=== PATIENT | female | born 1985 | race American Indian/Alaskan Native ===

== ENCOUNTER 2019-02-03 23:23 | Inpatient (IN) | payer MEDICAID ==
[2019-02-04] MEDS ORDERED: BETAMET ACET/BETAMET NA PH 6 MG/ML INJ 5 ML MDV IM ONE (00:17)
[2019-02-04] MEDS ORDERED: TERBUTALINE 1 MG/1 ML INJ IVP ONE (00:22)
[2019-02-04] MEDS ORDERED: LACTATED RINGERS 1,000 ML ONE ×2 (01:23→03:58)
[2019-02-04] MEDS ORDERED: FAMOTIDINE 20 MG/2 ML INJ IV ONE (01:38)
[2019-02-04] MEDS ORDERED: BICITRA ORAL LIQD 30ML PO ONE (01:38)
[2019-02-04] MEDS ORDERED: METOCLOPRAMIDE 10 MG/2 ML INJ IV ONE (01:38)
[2019-02-04 01:54] LABS: Basophils % (Auto) 0.2 % (0.0-1.8); Eosinophils % (Auto) 0.5 % (0.0-4.3); Hematocrit 30.6 % (30.3-42.9); Hemoglobin 9.7 gm/dl (10.1-14.3); Lymphocytes # (Auto) 1.5 K/mm3 (1.2-5.4); Lymphocytes % (Auto) 21.9 % (13.4-35.0); Mean Corpuscular HGB Conc 32 % (30-34); Monocytes # (Auto) 0.8 K/mm3 (0.0-0.8); Monocytes % (Auto) 11.6 % (0.0-7.3); Platelet Count 217 K/mm3 (140-440); Red Blood Count 4.52 M/mm3 (3.65-5.03)
[2019-02-04] MEDS ORDERED: LACTATED RINGERS 1,000 ML IV SCH (02:00)
[2019-02-04] MEDS ORDERED: ceFAZolin/Water 2 GM/20 ML 2 GM/20 ML SYRINGE IV NR (02:00)
[2019-02-04] MEDS ORDERED: OXYTOCIN 20 UNIT/1000ML DRIP 20 UNITS/1,000 ML BAG IV SCH ×2 (02:00→06:00)
[2019-02-04 02:02] LABS: Mean Corpuscular Volume 68 fl (79-97)
--- NOTE | 2019-02-04 02:47 | Anesthesia Consultation ---
Anesthesia Consult and Med Hx Date of service: 02/04/19 - Airway Anesthetic Teeth Evaluation: Good ROM Head & Neck: Adequate Mental/Hyoid Distance: Adequate Mallampati Class: Class II Intubation Access Assessment: Probably Good - Pulmonary Exam CTA: Yes - Cardiac Exam Cardiac Exam: RRR - Pre-Operative Health Status ASA Pre-Surgery Classification: ASA2 Proposed Anesthetic Plan: Spinal - Pulmonary Hx Asthma: No - Cardiovascular System Hx Hypertension: No - Central Nervous System Hx Seizures: No - Hematic Hx Anemia: Yes
--- NOTE | 2019-02-04 02:48 | Anesthesia Day of Surgery ---
Anesthesia Day of Surgery - Day of Surgery Patient Examined: Yes Patient H&P Reviewed: Yes Patient is NPO: Yes
[2019-02-04] MEDS ORDERED: AMPICILLIN/NS 2 GM/100 ML 2 GM/100 ML BAG IV ONE (03:10)
--- NOTE | 2019-02-04 03:29 | History and Physical Report ---
History of Present Illness Date of examination: 02/04/19 Date of admission: 02/03/19 23:23 Chief complaint: leaking and contractions History of present illness: This is a 33 yo EDC 03/07/19 here for leaking at 11p. She states that fluid leaking and noted to be grossly ruptured. She is a patient of [place] started care at 12 weeks. SHe is AMA,, previous csec x3, abnormal 1hr normal 3hr GTT and placental lakes. Past History Past Medical History: no pertinent history Past Surgical History: section (x3) Family/Genetic History: none Social history: single. denies: smoking, alcohol abuse, prescription drug abuse - Obstetrical History Expected Date of Delivery: 03/07/19 Actual Gestation: 35 Week(s) 4 Day(s) : 6 Para: 3 Hx # Term Pregnancies: 3 Number of Pregnancies: 0 Spontaneous Abortions: 1 Induced : 1 Number of Living Children: 3 Medications and Allergies Allergies Allergy/AdvReac Type Severity Reaction Status Date / Time No Known Allergies Allergy Verified 02/04/19 00:21 Active Meds: Active Medications Oxytocin/Sodium Chloride (Pitocin/Ns 20 Unit/1000ml Drip) 20 units in 1,000 mls @ 0 mls/hr IV TITR DANO Lactated Ringer's (Lactated Ringers) 1,000 mls @ 2,250 mls/hr IV PREOP DANO Stop: 02/05/19 02:27 Last Admin: 02/04/19 02:38 Dose: 2,250 mls/hr Documented by: Ampicillin Sodium (Ampicillin/Ns 2 Gm/100 Ml) 2 gm in 100 mls @ 100 mls/hr IV ONCE ONE; Protocol Stop: 02/04/19 04:09 Review of Systems All systems: negative - Vital Signs Vital signs: Vital Signs Pulse BP 91 H 135/83 02/03/19 23:47 02/03/19 23:47 Temp Pulse Resp BP Pulse Ox 97.9 F 96 H 20 129/71 02/03/19 23:48 02/04/19 01:03 02/03/19 23:48 02/04/19 01:03 - Physical Exam Breasts: Positive: normal Cardiovascular: Regular rate, Normal S1 Lungs: Positive: Clear to auscultation, Normal air movement Abdomen: Positive: normal appearance, soft, normal bowel sounds. Negative: distention, tenderness, guarding Genitourinary (Female): Positive: normal external genitalia, normal perenium - Obstetrical FHR: category 1 Cervical Dilatation: 0 Results Result Diagrams: 02/04/19 01:15 Abnormal lab results 02/04/19 Range/Units 01:15 Hgb 9.7 L (10.1-14.3) gm/dl MCV 68 L (79-97) fl MCH 21 L (28-32) pg RDW 17.0 H (13.2-15.2) % K[place]t % (Auto) 11.6 H (0.0-7.3) % All other labs normal. Assessment and Plan A/P IUP 35+4 weeks previous csec x3 PPROM uterine contractions IVF, labs discussed r/b/a of csec which include bleeding infection, damage to pelvic and non pelvic organs, risk of anesthesia, risk of blood clots, risk of pain and chronic pelvic pain and risk of hysterectomy and Patient voiced acknowlegment and signed consents Will proceed with repeat csec x3
--- NOTE | 2019-02-04 03:39 | Ultrasound Report ---
ULTRASOUND OBSTETRIC INDICATION: Evaluate well-being. Clinical Gestational Age (GA): 35 weeks, 4 days TECHNIQUE: Transabdominal. COMPARISON: OB ultrasound from 09/23/2018. FINDINGS: There is a single intrauterine . Biparietal Diameter = 8.7 cm = 34 weeks, 6 day(s). Head Circumference = 31.4 cm = 35 weeks, 1 day(s). Abdominal Circumference = 31.5 cm = 35 weeks, 3 day(s). Femur Length = 7.0 cm = 36 weeks, 0 day(s). Average Ultrasound Age (AUA) = 35 weeks, 3 day(s). Heart Rate: 130 beats per minute. Estimated Weight in grams (if calculated): 2683 Position: cephalic. Cervix: closed. Length in cm (if measured): 3.4 Placenta: Fundal/left lateral. and free of the os. Amniotic Fluid Volume: normal Amniotic Fluid Index (HANK) in cm (if calculated): 8.0. Maternal Adnexa: No significant abnormality. IMPRESSION: 1. Single, living intrauterine with estimated sonographic age of 35 weeks, 3 day(s). 2. No significant sonographic abnormality. Signer Name: Juan Carlos Wilkerson MD Signed: 02/04/2019 3:34 AM Workstation Name: [id number]
[2019-02-04] MEDS ORDERED: KETOROLAC 30 MG/1 ML INJ ONE (03:58)
[2019-02-04] MEDS ORDERED: DEXMEDETOMIDINE 200 MCG/2 ML VIAL IV ONE (03:58)
[2019-02-04] MEDS ORDERED: BUPIVACAINE/PF (0.5%) 5 MG/1 ML 30 ML VIAL INFILTRATI ONE (03:58)
[2019-02-04] MEDS ORDERED: OXYTOCIN 10 UNIT/1 ML INJ ONE (03:58)
[2019-02-04] MEDS ORDERED: ONDANSETRON 4 MG/2 ML INJ ONE (03:58)
[2019-02-04] MEDS ORDERED: WATER FOR IRRIG STERILE 1,500 ML BOTTLE IR ONE (04:00)
[2019-02-04] MEDS ORDERED: SODIUM CHLORIDE 0.9% IRR 1,500 ML BOTTLE IR ONE (04:00)
[2019-02-04] MEDS ORDERED: HYDROcodone/ACETAMINOPHEN 5-325 MG TAB PO PRN (05:32)
[2019-02-04] MEDS ORDERED: MORPHINE 2 MG/1 ML INJ IV PRN (05:32)
[2019-02-04] MEDS ORDERED: ACETAMINOPHEN 325 MG TAB PO PRN (05:32)
[2019-02-04] MEDS ORDERED: WITCH HAZEL/ GLYCERIN PAD TP PRN (05:32)
[2019-02-04] MEDS ORDERED: PROMETHAZINE 25 MG RECT SUPP PR PRN (05:32)
[2019-02-04] MEDS ORDERED: NALOXONE 0.4 MG/1 ML INJ IV PRN (05:32)
[2019-02-04] MEDS ORDERED: MAGNESIUM HYDROXIDE (MOM) ORAL LIQD UDC PO PRN (05:32)
[2019-02-04] MEDS ORDERED: HYDROCORTISONE 25 MG RECTAL SUPP PR PRN (05:32)
[2019-02-04] MEDS ORDERED: LANOLIN/ZINC/DIMETHICONE (LANSINOH) 7 GM TP PRN (05:32)
[2019-02-04] MEDS ORDERED: SENNOSIDES 8.6 MG TAB PO PRN (05:32)
[2019-02-04] MEDS ORDERED: SIMETHICONE 80 MG CHEW TAB PO PRN (05:32)
[2019-02-04] MEDS ORDERED: ONDANSETRON 4 MG/2 ML INJ IV PRN (05:32)
--- NOTE | 2019-02-04 05:37 | Procedure Note ---
OB Delivery Note - Delivery Date of Delivery: 02/04/19 Surgeon: MIKE CELESTE Estimated blood loss: 500cc - Section Preop diagnosis: repeat Postop diagnosis: same section procedure: section Disposition: PACU Complications: bladder injury Narrative: see op note - Infant A at 1 minute: 8 at 5 minutes: 8 Gender: Female (5 pounds 10 oz)
--- NOTE | 2019-02-04 05:38 | Operative Report ---
Operative Report Operative Report: DATE OF OPERATION: 02/04/19 PREOPERATIVE DIAGNOSES: 1. Prior section x3 2. PPROM 3.PTL POSTOPERATIVE DIAGNOSES: 1. Prior section. x3 2. PPROM 3. PTL 4. Adhesive disease OPERATION PERFORMED: Repeat low transverse x4, Bladder repair, Lysis of adhesions SURGEON: Kizzy Valenzuela MD EQUIPMENT VALIDATION ENGINEER:Abebe Valenzuela MD ANESTHESIA: Spinal. ESTIMATED BLOOD LOSS: 500 mL. FINDINGS: A viable female weighing 5 pounds 10oz Apgars 8 and 8 COMPLICATIONS: incidental cystotomy DISPOSITION: Stable. DESCRIPTION OF OPERATION: After informed consent was obtained, the patient was brought back to the operative suite where adequate spinal anesthesia was obtained. The patient was then placed in the dorsal supine position and prepped and draped in the sterile fashion. A repeat Pfannenstiel skin incision was made with a blade and carried down through the subcutaneous tissues to the fascia, which was extended in the transverse fascia with Avitia scissors. The fascial incision was then dissected off the rectus muscles both bluntly and sharply. Rectus muscles were not visualized. Peritoneum unidentified.. Superior area entered and noted to have bladder magallon observed.We spent 10 min dissecting and releasing adhesions to be able to enter fundally on the uterus . A low transverse uterine incision was made with the blade and carried down through the layers of the uterus until membranes bulged through the incision. The uterine incision was then extended digitally. Hand was placed inside the pelvis, and the head was brought up out of the pelvis and delivered atraumatically with gentle fundal pressure. Prior to the head being delivered. After the head was delivered, the mouth and nares were aggressively bulb suctioned. Remainder of the infant was delivered, and the was passed to the awaiting nursing staff for additional care. Cord was doubly clamped and cut and cord blood was obtained. The placenta was then manually extracted, and the uterus was not able to be exteriozed for the dense scar tissue. The uterus was cleaned of remaining clot. The uterine incision was readily identified and closed in two layers, first one with running locking followed by second imbricating layer of 0 Vicryl. The vesicouterine fascia was then reapproximated with 2-0 Vicryl. The adnexa were void on the left and palpation and visualization of left adnexa was not able secondary to dense vast adhesions. Copious irrigation and inspection of the incision was satisfactory. At this time focus on the doom of bladder and cystotomy which was irrigated and cleaned and repaired in two layers. We used 2-0 vicryl for repair with water tight seal with usage of sterile milk no milk noted. The peritoneum, rectus musle was then closed with 3-0 Vicryl in a running fashion. The fascia was closed with 1-0 PDS from one angle to the next. Subcutaneous tissues were copiously irrigated, and final bleeders were cauterized. The incision was then reapproximated with surgical tru in a standard fashion.
--- NOTE | 2019-02-04 05:56 | Post Anesthesia Evaluation ---
- Post Anesthesia Evaluation Patient Participated: Yes Airway Patent: Yes Stable Respiratory Function: Yes Nausea/Vomiting: No Temp > 96.8F: Yes Pain Manageable: Yes Adequeate Hydration: Yes Anesthesia Complications: No Block Receding Appropriately: Yes Patient on Ventilator: No
[2019-02-04] MEDS ORDERED: D5W/LACTATED RINGERS 1,000 ML IV SCH (06:00)
[2019-02-04] MEDS: KETOROLAC 30 MG/1 ML INJ IV PRN ×2 (09:47→18:47)
[2019-02-04] MEDS: MORPHINE 4 MG/1 ML INJ IV PRN ×2 (12:32→20:46)
[2019-02-04] MEDS: PRENATAL VIT27-FE FUMARATE-FOLIC ACID VIT TAB PO SCH (13:38)
[2019-02-04] MEDS: FERROUS SULFATE 325 MG TAB PO SCH (13:38)
[2019-02-04 17:37] LABS: Hematocrit 28.4 % (30.3-42.9); Hemoglobin 8.6 gm/dl (10.1-14.3)
[2019-02-05] MEDS: KETOROLAC 30 MG/1 ML INJ IV PRN (02:03)
[2019-02-05] MEDS: MORPHINE 4 MG/1 ML INJ IV PRN (04:26)
[2019-02-05] MEDS ORDERED: MEASLES, MUMPS & RUBELLA 12,500 UNIT/0.5 ML VACCINE SUB-Q ONE (05:33)
[2019-02-05] MEDS ORDERED: TETANUS,DIPH,PERTUSS(ACELL) VACCINE 0.5 ML SYRINGE IM ONE (06:00)
[2019-02-05] MEDS: cefTRIAXone/NS 2 GM/100 ML 2 GM/100 ML BAG IV SCH (09:50)
[2019-02-05] MEDS: IBUPROFEN 800 MG TAB PO PRN (09:50)
[2019-02-05] MEDS: PRENATAL VIT27-FE FUMARATE-FOLIC ACID VIT TAB PO SCH (09:51)
--- NOTE | 2019-02-05 13:45 | Progress Note ---
Assessment and Plan A/P POD1 s/p Repeat csec bladder repair urine sufficient and yellow consult again for Urology for f/u of repair currently on macrobid hgb 10-8 on iron routine care Subjective - Subjective Date of service: 02/05/19 Principal diagnosis: s/p reepeat csec x3/bladder repair Interval history: This is a 33 yo EDC 03/07/19 here for leaking at 11p. She states that fluid leaking and noted to be grossly ruptured. She is a patient of [facility] care at 12 weeks. SHe is AMA,, previous csec x3, abnormal 1hr normal 3hr GTT and placental lakes. Patient reports: appetite normal, voiding normally, pain well controlled, flatus, ambulating normally [place]: doing well, in NICU Objective - Vital Signs Latest vital signs: Vital Signs Temp Pulse Resp BP BP Pulse Ox 02/05/19 08:50 97.9 F 58 L 20 99/66 02/04/19 23:30 98.4 F 69 16 112/67 02/04/19 19:30 98.7 F 77 18 109/71 02/04/19 16:27 98.2 F 53 L 18 101/73 100 Intake and Output 02/04/19 02/05/19 02/05/19 23:59 07:59 15:59 Intake Total 360 Output Total 500 Balance -500 360 Intake: Oral 360 Output: Urine 500 Indwelling Catheter 500 Other: Total, Intake Amount 240 Total, Output Amount 400 # Voids Indwelling Catheter 200 Void 0 - Exam Breasts: Present: normal Cardiovascular: Present: Regular rate, Normal S1 Lungs: Present: Clear to auscultation, Normal air movement Abdomen: Present: normal appearance, soft, normal bowel sounds. Absent: distention, tenderness, guarding Uterus: Present: normal, firm, fundal height below umbilicus. Absent: bogginess, tenderness Extremities: Present: normal Deep Tendon Reflex Grade: Normal +2 Incision: Present: normal, intact - Labs Labs: Abnormal lab results 02/04/19 Range/Units 16:37 Hgb 8.6 L (10.1-14.3) gm/dl Hct 28.4 L (30.3-42.9) %
--- NOTE | 2019-02-05 14:20 | Consultation ---
History of Present Illness - Reason for Consult Consult date: 02/05/19 - History of Present Illness s is a 33 yo EDC 03/07/19 here for leaking at 11p. She states that fluid leaking and noted to be grossly ruptured. She is a patient of [place] started care at 12 weeks. SHe is previous [facility] x3. C section with bladder injury---repaired with magallon Male family at bedside. No previous gu history. abd--clean dressing magallon--clear urine A/P Recent C section with Bladder injury & repair home with magallon big bag & leg bag my office will set up outpt cystogram (7-10 days) and office appt Past History Social history: single. denies: smoking, alcohol abuse, prescription drug abuse Medications and Allergies Allergies Allergy/AdvReac Type Severity Reaction Status Date / Time No Known Allergies Allergy Verified 02/04/19 00:21 Home Medications Medication Instructions Recorded Confirmed Last Taken Type oxyCODONE /ACETAMINOPHEN [Percocet 1 tab PO Q6HR PRN #40 tablet 02/05/19 Unknown Rx 5/325] Active Meds: Active Medications Acetaminophen (Tylenol) 650 mg PO Q4H PRN PRN Reason: Fever >100.5/SHAH Acetaminophen/Hydrocodone Bitart ([place] 5/325) 1 each PO Q6H PRN PRN Reason: Pain, Moderate (4-6) Ferrous Sulfate (Feosol) 325 mg PO QDAY [facility] Last Admin: 02/04/19 13:38 Dose: Not Given Documented by: Hydrocortisone Acetate (Anucort-Hc) 25 mg VT BID PRN PRN Reason: Hemorrhoids Oxytocin/Sodium Chloride (Pitocin/Ns 20 Unit/1000ml Drip) 20 units in 1,000 mls @ 0 mls/hr IV TITR [facility] Last Admin: 02/04/19 06:57 Dose: 125 mls/hr Documented by: Oxytocin/Sodium Chloride (Pitocin/Ns 20 Unit/1000ml Drip) 20 units in 1,000 mls @ 250 mls/hr IV DIRECT DANO Dextrose/Lactated Ringer's (D5lr) 1,000 mls @ 125 mls/hr IV DIRECT DANO Ceftriaxone Sodium (Rocephin/Ns 2 Gm/100 Ml) 2 gm in 100 mls @ 200 mls/hr IV Q24HR [facility]; Protocol Last Admin: 02/05/19 09:50 Dose: 200 mls/hr Documented by: Ibuprofen (Ibuprofen) 800 mg PO Q6H PRN PRN Reason: Pain, Mild (1-3) Last Admin: 02/05/19 09:50 Dose: 800 mg Documented by: Ketorolac Tromethamine (Toradol) 30 mg IV Q6H PRN PRN Reason: Pain, Moderate (4-6) Stop: 02/09/19 05:31 Last Admin: 02/05/19 02:03 Dose: 30 mg Documented by: Magnesium Hydroxide (Milk Of Magnesia) 30 ml PO QHS PRN PRN Reason: Constip Unrelieved By Senna Last Admin: 02/04/19 12:31 Dose: 30 ml Documented by: Morphine Sulfate (Morphine) 2 mg IV Q4H PRN PRN Reason: Pain, Moderate (4-6) Morphine Sulfate (Morphine) 4 mg IV Q4H PRN PRN Reason: Pain , Severe (7-10) Last Admin: 02/05/19 04:26 Dose: 4 mg Documented by: Multi-Ingredient Ointment (Lansinoh) 1 applic TP PRN PRN PRN Reason: dryness/cracking Multivitamins/Iron/Calcium ( Vitamin) 1 each PO QDAY [facility] Last Admin: 02/05/19 09:51 Dose: 1 each Documented by: Naloxone HCl (Naloxone) 0.1 mg IV Q2MIN PRN PRN Reason: Res Rate </= 8 or 02 SAT < 92% Ondansetron HCl (Zofran) 4 mg IV Q8H PRN PRN Reason: Nausea And Vomiting Oxycodone/Acetaminophen (Percocet 5/325) 2 tab PO Q6H PRN PRN Reason: Pain, Moderate (4-6) Promethazine HCl (Phenergan) 25 mg VT Q6H PRN PRN Reason: N/V IF NPO AND NO IV ACCESS Senna (Senokot) 17.2 mg PO QHS PRN PRN Reason: Constipation Simethicone (Mylicon) 80 mg PO Q6H PRN PRN Reason: Gas pain Last Admin: 02/04/19 12:31 Dose: 80 mg Documented by: Sodium Chloride (Sodium Chloride Flush Syringe 10 Ml) 10 ml IV PRN PRN PRN Reason: LINE FLUSH Witch Martha/Glycerin (Tucks Pad) 1 each TP PRN PRN PRN Reason: Hemorrhoids/cleansing/soothing Exam - Constitutional Vitals: Temp Pulse Resp BP Pulse Ox 97.9 F 58 L 20 99/66 100 02/05/19 08:50 02/05/19 08:50 02/05/19 08:50 02/05/19 08:50 02/04/19 16:27 Results - Labs CBC & Chem 7: 02/04/19 16:37 Labs: Abnormal lab results 02/04/19 Range/Units 16:37 Hgb 8.6 L (10.1-14.3) gm/dl Hct 28.4 L (30.3-42.9) %
[2019-02-05] MEDS: oxyCODONE /ACETAMINOPHEN 5-325MG TAB PO PRN ×2 (15:04→20:23)
--- NOTE | 2019-02-05 17:03 | Progress Note ---
Assessment and Plan POD1 s/p repeat and cystotomy repair Acute on chronic anemia- ferrous sulfate supplementation Provide Raymundo/leg bag education Anticipate d/c to home on POD3 Subjective - Subjective Date of service: 02/05/19 Principal diagnosis: s/p repeat csec x3/bladder repair Interval history: Pt is POD1 s/p repeat LTCS and cystotomy repair Patient reports: appetite normal, pain well controlled, flatus, ambulating normally, other (Raymundo catheter in place) [place]: in NICU Objective - Vital Signs Latest vital signs: Vital Signs Temp Pulse Resp BP 02/05/19 08:50 97.9 F 58 L 20 99/66 02/04/19 23:30 98.4 F 69 16 112/67 02/04/19 19:30 98.7 F 77 18 109/71 Intake and Output 02/05/19 02/05/19 02/05/19 07:59 15:59 23:59 Intake Total 360 Output Total 500 Balance -500 360 Intake: Oral 360 Output: Urine 500 Indwelling Catheter 500 Other: Total, Intake Amount 240 Total, Output Amount 400 # Voids Void 0 - Exam Lungs: Present: Normal air movement Abdomen: Present: soft Uterus: Present: firm, fundal height below umbilicus Extremities: Present: normal Incision: Present: dressed - Labs Labs: Abnormal lab results 02/04/19 Range/Units 16:37 Hgb 8.6 L (10.1-14.3) gm/dl Hct 28.4 L (30.3-42.9) %
[2019-02-06] MEDS: oxyCODONE /ACETAMINOPHEN 5-325MG TAB PO PRN ×3 (05:23→18:00)
--- NOTE | 2019-02-06 08:20 | Progress Note ---
Assessment and Plan A/P POD2 s/p Repeat csec bladder repair urine sufficient and yellow appreciate consult from urology with f/u in 7-10 days for cystogram prior to removal currently on macrobid hgb 9.7-8 on iron routine care d/c home pod 3 Subjective - Subjective Date of service: 02/06/19 Principal diagnosis: s/p repeat csec x3/bladder repair Interval history: This is a 33 yo EDC 03/07/19 here for leaking at 11p. She states that fluid leaking and noted to be grossly ruptured. She is a patient of [facility] care at 12 weeks. SHe is AMA,, previous csec x3, abnormal 1hr normal 3hr GTT and placental lakes. Patient reports: appetite normal, voiding normally, pain well controlled, flatus, ambulating normally [place]: doing well, in NICU Objective - Vital Signs Latest vital signs: Vital Signs Temp Pulse Resp BP 02/06/19 05:23 18 02/06/19 01:25 18 02/05/19 23:30 98.7 F 67 18 114/78 02/05/19 20:23 18 02/05/19 17:00 98.6 F 66 20 105/61 02/05/19 08:50 97.9 F 58 L 20 99/66 Intake and Output 02/05/19 02/06/19 02/06/19 23:59 07:59 15:59 Intake Total 120 200 Output Total 600 Balance -480 200 Intake: Oral 120 200 Output: Urine 600 Indwelling Catheter 600 Other: Total, Intake Amount 120 200 Total, Output Amount 600 - Exam Breasts: Present: normal Cardiovascular: Present: Regular rate, Normal S1 Lungs: Present: Clear to auscultation, Normal air movement Abdomen: Present: normal appearance, soft, normal bowel sounds. Absent: distention, tenderness, guarding Vulva: both: normal Uterus: Present: normal, firm, fundal height below umbilicus. Absent: bogginess, tenderness Extremities: Present: normal Deep Tendon Reflex Grade: Normal +2 Incision: Present: normal, dry, intact
[2019-02-06] MEDS: IBUPROFEN 800 MG TAB PO PRN ×2 (08:25→23:51)
[2019-02-06] MEDS: FERROUS SULFATE 325 MG TAB PO SCH (10:08)
[2019-02-06] MEDS: PRENATAL VIT27-FE FUMARATE-FOLIC ACID VIT TAB PO SCH (10:08)
[2019-02-06] MEDS: cefTRIAXone/NS 2 GM/100 ML 2 GM/100 ML BAG IV SCH (10:08)
[2019-02-07] MEDS: oxyCODONE /ACETAMINOPHEN 5-325MG TAB PO PRN ×2 (05:15→11:30)
[2019-02-07] MEDS: PRENATAL VIT27-FE FUMARATE-FOLIC ACID VIT TAB PO SCH (09:18)
[2019-02-07] MEDS: FERROUS SULFATE 325 MG TAB PO SCH (09:18)
[2019-02-07] MEDS: cefTRIAXone/NS 2 GM/100 ML 2 GM/100 ML BAG IV SCH (09:18)
--- NOTE | 2019-02-07 10:16 | Progress Note ---
Assessment and Plan POD3 s/p repeat and bladder repair Acute on chronic anemia- ferrous sulfate supplementation VSS D/c to home today Subjective - Subjective Date of service: 02/07/19 Principal diagnosis: s/p repeat csec x3/bladder repair Interval history: Pt is POD3 s/p repeat LTCS and bladder repair Patient reports: appetite normal, voiding normally, pain well controlled, flatus, ambulating normally : doing well, nursing well (and pumping), bottle feeding Objective - Vital Signs Latest vital signs: Vital Signs Temp Pulse Resp BP BP Pulse Ox 02/07/19 07:58 98.1 F 53 L 20 119/78 98 02/06/19 23:32 97.2 F L 63 20 107/66 97 02/06/19 16:20 98.7 F 72 20 112/82 Intake and Output 02/06/19 02/07/19 02/07/19 23:59 07:59 15:59 Intake Total 780 360 Output Total 400 800 Balance 380 -440 Intake: Oral 780 360 Output: Urine 400 800 Indwelling Catheter 400 800 Void 0 Other: Total, Intake Amount 360 120 Total, Output Amount 200 400 # Voids Indwelling Catheter 1 Void 0 - Exam Lungs: Present: Normal air movement Abdomen: Present: distention Uterus: Present: firm, fundal height below umbilicus Extremities: Present: normal Incision: Present: normal, dry, intact
--- NOTE | 2019-02-07 10:20 | Discharge Summary ---
Providers - Providers Date of Admission: 02/03/19 23:23 Date of discharge: 02/07/19 Attending physician: MIKE CELESTE MD 02/05/19 13:23 Consult to Physician [CONS] Urgent Comment: Consulting Provider: MARC RIOS Physician Instructions: Reason For Exam: Incidental cytsostomy repaired at time of 3rd [facility] Primary care physician: MIKE CELESTE MD Hospitalization Reason for admission: rupture of membranes Delivery: Procedure: repeat low transverse Procedure details: Lysis of adhesions and incidental cystotomy repair Incision: normal, dry, intact Discharge diagnosis: delivery Hospital course: Pt arrived with ROM and underwent repeat x4 complicated by adhesive disease and cystotomy, repaired. She is discharged with Raymundo in place and close urology f/u. Condition at discharge: Good Disposition: DC-01 TO HOME OR SELFCARE Plan - Discharge Medications Prescriptions: Ferrous Sulfate [Ferrous Sulfate 324 MG] 324 mg PO BID #60 tablet. Ibuprofen [Motrin] 600 mg PO Q6H PRN #60 tablet PRN Reason: Pain oxyCODONE /ACETAMINOPHEN [Percocet 5/325] 1 tab PO Q6HR PRN #40 tablet PRN Reason: Pain - Provider Discharge Summary Activity: routine, no sex for 6 weeks, no heavy lifting 4 weeks, no strenuous exercise Diet: routine Instructions: routine Additional instructions: [] Smoking cessation referral if applicable(refer to patient education folder for contact #) [] Refer to [facility] Booklet Call your doctor immediately for: * Fever > 100.5 * Heavy vaginal bleeding ( >1 pad per hour) * Severe persistent headache * Shortness of breath * Reddened, hot, painful area to leg or breast * Drainage or odor from incision. * Keep incision clean and dry at all times and follow doctor's instructions regarding bathing/showering - Follow up plan Follow up: MIKE CELESTE MD [Primary Care Provider] - 7 Days (Please call [place] [facility] environmental engineer scientist to schedule appointment.)
[2019-02-07 13:11] VITALS: BP 132/85
== END 2019-02-07 13:56 | disposition home or self-care (01) | DRG 765 ==
LOC: APU 23:23 → OB 02-04 07:36
PROVIDERS: ADMIT Obstetrics & Gynecology; ATTEND Obstetrics & Gynecology
PROC: 10D00Z1 Extraction of Products of Conception, Low, Open Approach (ICD-10-PCS; principal; 2019-02-04)
PROC: 0UN90ZZ Release Uterus, Open Approach (ICD-10-PCS; 2019-02-04)
PROC: 0TQB0ZZ Repair Bladder, Open Approach (ICD-10-PCS; 2019-02-04)
PROC: 3E0234Z Introduction of Serum, Toxoid and Vaccine into Muscle, Percutaneous Approach (ICD-10-PCS; 2019-02-05)
PROC: 3E0134Z Introduction of Serum, Toxoid and Vaccine into Subcutaneous Tissue, Percutaneous Approach (ICD-10-PCS; 2019-02-05)
DX: O60.14X0 Preterm labor third trimester with preterm delivery third trimester, not applicable or unspecified (principal); O71.5 Other obstetric injury to pelvic organs; O42.013 Preterm premature rupture of membranes, onset of labor within 24 hours of rupture, third trimester; O34.211 Maternal care for low transverse scar from previous cesarean delivery; O99.89 Other specified diseases and conditions complicating pregnancy, childbirth and the puerperium; N73.6 Female pelvic peritoneal adhesions (postinfective); Z3A.35 35 weeks gestation of pregnancy; Z37.0 Single live birth; Z23 Encounter for immunization; O99.02 Anemia complicating childbirth; D64.9 Anemia, unspecified
CPT/HCPCS: 36415; 76816; 85014; 85018; 85025; 86850; 86900; 86901; 87086; 88307; 90707; G0378; J0290; J0690; J0696; J0702; J1885; J2270; J2405; J2590; J2765; J3105; J3490; J7120

== ENCOUNTER 2019-02-12 11:23 | Outpatient (CLI) | payer MEDICAID ==
--- NOTE | 2019-02-12 12:58 | Fluoroscopy Report ---
Cystogram Indication: N99.72 ACCIDENTAL PUNCTURE OF LACERATION OF A GENITOURINARY SYSTE. Bladder injury durin g recent surgery, here to assess for any residual leak Technique: Single contrast water-soluble technique utilized to evaluate the urinary bladder. Findings: To begin the exam, the patient's indwelling Raymundo catheter was accessed and locate to wate r soluble contrast. Under gravity, the urinary bladder was slowly filled with 175 mL of water-soluble contrast. Multiple frontal and oblique images were obtained which showed no leak. There was slight b ladder wall irregularity right of midline which may be the site of injury; however, there was again n o leak and no obvious abnormality. Impression: No evidence of leak. Fluoroscopic time: 1.5 minutes Number of fluoroscopic images: 15 Signer Name: González Bellamy MD Signed: 02/12/2019 12:54 PM Workstation Name: [id number]
== END 2019-02-12 11:24 | disposition home or self-care (01) ==
LOC: FLUORO 11:23
PROVIDERS: ATTEND Urology
DX: N99.72 Accidental puncture and laceration of a genitourinary system organ or structure during other procedure (principal); D64.9 Anemia, unspecified; Z83.3 Family history of diabetes mellitus; Z80.42 Family history of malignant neoplasm of prostate; Z79.899 Other long term (current) drug therapy; Z98.891 History of uterine scar from previous surgery; Z82.49 Family history of ischemic heart disease and other diseases of the circulatory system
CPT/HCPCS: 51600; 74430; Q9958